=== PATIENT | male | born 1960 | race Caucasian/White ===

== ENCOUNTER → 2016-07-09 | Outpatient (CLI) | payer BC ==
[~2016-07-09] MED LIST: HYDR-963 PO; OMEG500C PO
[2016-07-09 13:59] LABS: BASO % 0 % (0-3); EOS % 2 % (0-3); HEMATOCRIT 45.1 % (39.0-53.0); LYMPH # 2.9 x10^3/uL (1.0-4.8); LYMPH % 30 % (24-48); MEAN CORPUSCULAR HEMOGLOBIN 28 pg (25-35); MEAN CORPUSCULAR HGB CONC 33 g/dL (31-37); MEAN CORPUSCULAR VOLUME 85 fL (79-100); MONO % 7 % (0-9); NEUT % 61 % (31-73); PLATELET COUNT 267 x10^3/uL (140-400); RED CELL DISTRIBUTION WIDTH 13.1 % (11.5-14.5); WHITE BLOOD COUNT 9.9 x10^3/uL (4.0-11.0)
[2016-07-09 14:08] LABS: INR 1.1 (0.8-1.1); PROTHROMBIN TIME PATIENT 13.5 SEC (11.7-14.0)
[2016-07-09 14:32] LABS: ALBUMIN 3.8 g/dL (3.4-5.0); ALBUMIN/GLOBULIN RATIO 1.3 (1.0-1.7); CALCIUM 8.9 mg/dL (8.5-10.1); GFR 77.9; TOTAL BILIRUBIN 0.3 mg/dL (0.2-1.0); TOTAL PROTEIN 6.7 g/dL (6.4-8.2)
== END | disposition home or self-care (01) ==
LOC: SURGPAT 13:28
PROVIDERS: ATTEND Neurological Surgery
DX: Z01.812 Encounter for preprocedural laboratory examination (principal)
CPT/HCPCS: 36415; 80053; 85027; 85610; 85730; 87641

== ENCOUNTER 2016-07-28 07:23 | Observation (INO) | payer BC ==
--- NOTE | 2016-07-25 10:31 | HP ---
ADMIT DATE: 07/28/2016 HISTORY OF PRESENT ILLNESS: The patient is a pleasant 56-year-old who is having difficulty with lower back pain on the right side and pain which radiates into her right buttock and posterior thigh. He rates his pain as a 5/10. He uses heat and ice and a TENS unit. He uses oxycodone as well as a fentanyl patch. He underwent therapy last year, which has not given him lasting relief. I studied him with lumbar myelography. PAST MEDICAL HISTORY: None reported. PAST SURGICAL HISTORY: Knee surgery in 2006, lumbar surgery in 2009, lumbar fusion at L4-L5 in 2011. FAMILY HISTORY: Noncontributory. SOCIAL HISTORY: The patient is self employed. He has three children. He rarely exercises. He currently smokes 1 pack per day and has for the past 30 years. He consumes alcohol one to two times per year. ALLERGIES: MORPHINE. CURRENT MEDICATIONS: Vitamin C, fish oil, Advil, multivitamin, fentanyl, Percocet. REVIEW OF SYSTEMS: A 12-point review of systems was obtained and is noncontributory except for that mentioned above. PHYSICAL EXAMINATION: NEUROSURGERY EXAMINATION: GENERAL APPEARANCE: Alert, pleasant, no acute distress. HEAD: Normocephalic and atraumatic. SKIN: Warm and dry, well-healed lumbar incision. MUSCULOSKELETAL: Lumbar paraspinal muscle bulk is normal, restricted range of motion of lumbar spine, [id number] tenderness of lower lumbar spine with palpation, normal range of motion of the lower extremities bilaterally. EXTREMITIES: No clubbing, cyanosis, or edema. NEUROLOGIC: Alert and oriented x 3, normal recent and remote memory, strength 5/5 in bilateral lower extremities, sensory was intact to light touch in the lower extremities bilaterally, reflexes were present and symmetric in bilateral lower extremities, negative straight leg raising bilaterally, normal gait. IMAGING: I reviewed the lumbar myelogram and post-myelogram CT scan. He has developed significant lateral recess and foraminal narrowing at L5-S1 on the right side. He has also developed neural foraminal narrowing at L4-L5 on the right. ASSESSMENT/ PLAN: I believe the problems at L5-S1 on the right are responsible for his pain. My recommendation is that he undergo a hemilaminotomy as well as transfacet exposure to decompress both the L5 and S1 nerve roots on the right side. He understands the rationale for surgery and would like to go ahead. I explained the risk of this technique. I explained the expected postoperative course. He would like to proceed. We will make the arrangements. SORIN HARVEY MD DR: DENNY/medardo JOB#: [id number] / [id number] [place]
[2016-07-28] VITALS (11 sets, daily range): BP systolic 105–136; BP diastolic 58–79
[~2016-07-28] VITALS: Ht 175.3 cm; Wt 102.1 kg
[~2016-07-28 07:23] MED LIST changes: +BACITRACIN 50,000 UNIT in IV NORMAL SALINE 1000ML BAG 1,000 ML IRR ONE; +BUPIVAC MPF-EPI 0.5%-1:200000 30 ML VIAL. ONE; +CEFAZOLIN 2GM PREMIX 50 ML IV PRN; +FENT1PAT90 TD; +FENTANYL PF 100 MCG/2 ML VIAL. IV PRN; +GELATIN SPONGE SIZE 100. ONE; +IV RINGERS,LACTATED 1000ML 1,000 ML IV SCH; +KETOROLAC 60 MG/2 ML SYRINGE FOR OR. ONE; +LIDOCAINE 1% 1 ML SYRINGE. ID PRN; +MORPHINE SULFATE 2 MG/ML DISP.SYRIN. IV PRN; +ONDANSETRON PF 4 MG/2 ML VIAL. IV PRN; +OXYC5CAP3 PO; +PROCHLORPERAZINE 10 MG/2 ML VIAL. IV PRN; +THROMBIN 20,000 UNIT SPRAY.SYRN KIT TP ONE
[2016-07-28] MEDS ORDERED: DESFLURANE 61 TO 120 MINUTES IH ONE (08:05)
[2016-07-28] MEDS ORDERED: REMIFENTANIL 2 MG VIAL. IV ONE (08:05)
[2016-07-28] MEDS ORDERED: MIDAZOLAM HCL 2 MG/2 ML VIAL. ONE (08:05)
[2016-07-28] MEDS ORDERED: PROPOFOL 20 ML IV ONE (08:05)
[2016-07-28] MEDS ORDERED: ONDANSETRON PF 4 MG/2 ML VIAL. ONE (08:05)
[2016-07-28] MEDS ORDERED: PROPOFOL 50 ML IV ONE (08:05)
[2016-07-28] MEDS ORDERED: ROCURONIUM 50 MG/5 ML VIAL. ONE (08:05)
[2016-07-28] MEDS ORDERED: LIDOCAINE 2% 100 MG/5 ML DISP.SYRIN. ONE (08:05)
[2016-07-28] MEDS ORDERED: DEXAMETHASONE SOD PHOS 20 MG/5 ML VIAL. ONE (08:05)
[2016-07-28] MEDS ORDERED: FENTANYL PF 100 MCG/2 ML VIAL. ONE (08:05)
[2016-07-28] MEDS ORDERED: 0.9 % SODIUM CHLORIDE 50 ML VIAL. IJ ONE (08:07)
[2016-07-28] MEDS ORDERED: MINERAL OIL/PETROLATUM,WHITE OPHTH OINT 3.5GM TUBE. ONE (08:13)
[2016-07-28] MEDS ORDERED: GLYCOPYRROLATE 1 MG/5 ML VIAL. ONE (09:46)
[2016-07-28] MEDS ORDERED: PHENYLEPHRINE in 0.9% NACL PF 1 MG/10 ML DISP.SYRIN. IV ONE (10:22)
[2016-07-28] MEDS ORDERED: ACETAMINOPHEN 325 MG TABLET. PO PRN (11:30)
[2016-07-28] MEDS ORDERED: MAGNESIUM HYDROXIDE 2,400 MG/30 ML ORAL.SUSP. PO PRN (11:30)
[2016-07-28] MEDS ORDERED: CYCLOBENZAPRINE 10 MG TABLET. PO PRN (11:30)
[2016-07-28] MEDS ORDERED: CALCIUM CARBONATE 500 MG TAB.CHEW PO PRN (11:30)
[2016-07-28] MEDS ORDERED: DIPHENHYDRAMINE 50 MG/ML VIAL IV PRN (11:30)
[2016-07-28] MEDS ORDERED: 0.9 % SODIUM CHLORIDE 10 ML DISP.SYRIN. IV PRN (11:30)
[2016-07-28] MEDS ORDERED: ZOLPIDEM 5 MG TABLET. PO PRN (11:30)
[2016-07-28] MEDS ORDERED: FENTANYL PF 100 MCG/2 ML VIAL. IV PRN (11:30)
[2016-07-28] MEDS ORDERED: ONDANSETRON PF 4 MG/2 ML VIAL. IV PRN (11:30)
[2016-07-28] MEDS ORDERED: MAG HYDROX/AL HYDROX/SIMETH 30 ML ORAL.SUSP PO PRN (11:30)
[2016-07-28] MEDS ORDERED: DIPHENHYDRAMINE HCL 25 MG CAPSULE PO PRN (11:30)
[2016-07-28] MEDS ORDERED: FENTANYL 25MCG/HR PATCH. TD SCH (12:00)
[2016-07-28] MEDS: POTASSIUM CL 20MEQ D5-0.45NACL 1,000 ML IV SCH ×2 (12:00→21:00)
--- NOTE | 2016-07-28 12:18 | OP ---
DATE OF SURGERY: 07/28/2016 PREOPERATIVE DIAGNOSES: Lateral recess and foraminal narrowing, L5-S1, right with right lumbar radiculopathy. POSTOPERATIVE DIAGNOSES: Lateral recess and foraminal narrowing, L5-S1, right with right lumbar radiculopathy. OPERATION PERFORMED: Hemilaminotomy and transfacet/foraminal exposure with decompression of the lateral recess and foramen at L5-S1, right. The operation was done with EMG monitoring, fluoroscopy and microscopic dissection. SURGEON: Donnell Harvey M.D. ARTIFICIAL INSEMINATION TECHNICIAN: Scot Pinedo MD, assisted with surgery, assisted with the exposure, the microdecompression as well as the closure. OPERATIVE INDICATIONS: The patient is a very pleasant 56-year-old man who has a long history of problems with back and right leg pain. On imaging studies, there is previous fusion at L4-L5. There is also foraminal narrowing, which is significant on the right side at L5-S1. I recommended transforaminal decompression at L5-S1, right and did discuss with him including an instrumented fusion. At this point, we are going to go ahead with a decompression alone. He understands surgery, the risks as well as the technique of the operation. DESCRIPTION OF PROCEDURE: Following general endotracheal anesthesia, the patient was positioned to the prone position on the Acromed spine board. His lumbar region was prepped and draped in standard fashion. FILIBERTO hose and AV impulse boots were applied for DVT prophylaxis. A microscope was draped. Fluoroscopy was draped and brought into field, monitoring was established. Ancef 2 grams was given less than 1 hour prior to initiation of surgery. Using fluoroscopic guidance, incision was made in the midline over the L5-S1 interspace. I took it down through the skin and subcutaneous tissue and worked on reflecting the paraspinal muscles laterally. I placed Gennaro retractor and I visualized the top of S1 and the bottom portion of the L5 and then worked superiorly removing scar and exposed the pedicle screw in L5 on the right and then brought in the microscope and using high speed air drill, I burred down a very generous hemilaminotomy, then worked superiorly and then followed laterally. I decompressed the right S1 root and performing a partial foraminotomy and superiorly lift them. I worked until I could visualize the takeoff of the L5 root as it rounded the inferior aspect of the pedicle and moved laterally. I then followed this out laterally. There was significant lateral stenosis directly over the L5 root in this location as I worked and trimmed this material away, the root moved back to more posterior position and was well decompressed. I was able to pass a Lupe dental out along the nerve root laterally and I assured myself that it was very well decompressed. I irrigated copiously. I did obtain excellent hemostasis and then, I closed the wound in layers with absorbable suture after again visualizing the region and ensuring that there were no disk fragments. The root and dura were very free. The wound was closed with absorbable suture and skin was closed with 4-0 subcuticular stitch. The operation went very well. I was quite pleased with the surgery. DONNELL HARVEY MD DR: Bebe JOB#: [id number] / [id number] DICTATED BY: DONNELL HARVEY MD 07/28/16 1050 SIGNED BY: cc: ~ DONNELL HARVEY MD DR: Bebe JOB#: [id number] / [id number] [facility]ENTER[facility]
--- NOTE | 2016-07-28 12:25 | OP ---
DATE OF SURGERY: 07/28/2016 duplicate MTDD
[2016-07-28] MEDS: FENTANYL PF 100 MCG/2 ML VIAL. IV PRN ×2 (12:26→18:25)
[2016-07-28] MEDS: OXYCODONE IR 5 MG TABLET. PO PRN ×2 (16:12→22:06)
[2016-07-28] MEDS: DOCUSATE SODIUM 100 MG CAPSULE PO SCH (20:59)
[2016-07-29 03:09] VITALS: BP 102/55
[2016-07-29 06:20] VITALS: BP 99/60
[2016-07-29] MEDS: OXYCODONE IR 5 MG TABLET. PO PRN ×2 (07:25→10:23)
[2016-07-29] MEDS: DOCUSATE SODIUM 100 MG CAPSULE PO SCH (07:25)
--- NOTE | 2016-07-29 09:47 | DISCH ---
DISCHARGE INSTRUCTIONS Activity After Discharge Activity Instructions for Disc: Activity as tolerated, Avoid exertion Other activity instructions: no driving for a week Bathing Instructions: Shower-keep dressing dry Lifting Instructions after Dis: No heavy lifting, No pulling or pushing, Do not lift >10 pounds Diet after Discharge Additional Diet Restrictions: resume home diet Wound Incision Care Wound/Incision Care: Ice to area for comfort Other wound/incision instructi: may remove dressing tomorrow if dry then esme shower- no soaking Contacting the [facility] after DC Call your doctor for: Concerns you may have Follow-Up Follow up with: Dr. Harvey in 2 weeks SORIN HARVEY MD Jul 29, 2016 09:47
[2016-07-29] MEDS ORDERED: CYCL10TA2 PO (09:49)
[2016-07-29] MEDS ORDERED: DOCU-27 PO (09:49)
[2016-07-29] MEDS ORDERED: OXYC-244 PO (09:49)
--- NOTE | 2016-07-29 11:39 | DS ---
DATE OF DISCHARGE: 07/29/2016 DISCHARGE DIAGNOSES: Lateral recess and foraminal narrowing, L5-S1 right with right lumbar radiculopathy. OPERATION PERFORMED: Hemilaminotomy and transfacet/foraminal exposure with decompression of the lateral recess and foramen at L5-S1, right. HISTORY OF PRESENT ILLNESS: The patient is a very pleasant 56-year-old man who has a long history of problems with his back and right leg. On imaging studies, there was a fusion at L4-L5, there was also foraminal area which was significant on the right side at L5-S1. I recommended transforaminal decompression at L5-S1 on the right. I discussed this with him in detail. He understood and wished to proceed. HOSPITAL COURSE: He was admitted to the floor postoperatively where he did well. He is up ambulating in the room and in the halls. Physical therapy was initiated and instruction was given to him regarding his activities. His pain is well controlled and he is in good condition and discharged to home. DISCHARGE MEDICATIONS: He will resume his medications per the MRAD. DISCHARGE INSTRUCTIONS: He was instructed regarding incision care, activity restrictions and expectations for the next several days. He will follow up in our office in 2 weeks. He understands to call with any questions or concerns. SORIN HARVEY MD DR: SHANTE/medardo JOB#: [id number] / [id number]
--- NOTE | 2016-07-29 16:31 | PATHOLOGY ---
PATHOLOGY REPORT * * * * * * * * FINAL DIAGNOSIS: Segments of fibrocartilaginous, fibroadipose, and skeletal muscle tissue and bone, lumbar decompression: - Degenerative changes of fibrocartilaginous tissue. COMMENT: There is no evidence of an acute inflammatory process or malignancy. (JPM:; d/t: 07/29/16) REPORT ELECTRONICALLY SIGNED BY: Alhaji Cloud M.D. DATE/TIME: 07/29/2016 16:31 * * * * * * * * GROSS PATHOLOGY: Received in formalin labeled "Aaron Arvizu and lumbar decompression," are multiple segments of blood-tinged, white-uriostegui, rubbery and gritty tissue admixed with possible bone measuring 4.3 x 3.0 x 0.5 cm in aggregate dimensions. The tissue is submitted representatively in cassette A1, following decalcification. (TTL; 07/28/2016) INITIAL CPT CODE(S): A; 99107, 38072 Professional services performed by [facility] [place] [address] Technical services performed by [facility] at [address] [place] [address] [address], [place] [address]. SPECIMEN(S) RECEIVED: A.Lumbar decompression CLINICAL HISTORY: Lumbar stenosis, radiculopathy PATIENT: AARON ARVIZU /AGE: 107/05/1960 (Age: 56) PATIENT #: [id number] ALT CASE #: SPECIMEN COLLECTION DATE: 07/28/2016 SPECIMEN RECEIVED DATE: 07/28/2016 [facility] - [address] [place] [address] - PHONE: [phone] * * * END OF REPORT * * *
[2016-07-30] MEDS ORDERED: FENTANYL 25MCG/HR PATCH. TD SCH (09:00)
== END 2016-07-29 11:15 | disposition home or self-care (01) ==
LOC: SURG 07:23 → 4 SOUTHEST 11:35
PROVIDERS: ADMIT Neurological Surgery; ATTEND Neurological Surgery
DX: M48.07 Spinal stenosis, lumbosacral region (principal); M54.16 Radiculopathy, lumbar region; F17.210 Nicotine dependence, cigarettes, uncomplicated
CPT/HCPCS: 63047; 76000; 88304; 88311; 96374; 96376; 97110; 97161; 97530; 99406; G0378; G0379; J0690; J1100; J1885; J2250; J2370; J2704; J3010; J3490; J7030; J7120; J2405